=== PATIENT | male | born 1935 | race Caucasian/White ===

== ENCOUNTER → 2017-04-09 | Outpatient (CLI) | payer MEDICARE ==
--- NOTE | 2017-04-09 15:48 | ECHOF ---
Referral Reason:I10 HTN MEASUREMENTS -------- HEIGHT: 172.7 cm WEIGHT: 81.6 kg BP: RVIDd: 3.4 cm (< 3.3) IVSd: 1.4 cm (0.6 - 1.1) LVIDd: 3.5 cm (3.9 - 5.3) LVPWd: 1.4 cm (0.6 - 1.1) IVSs: 1.7 cm LVIDs: 2.6 cm LVPWs: 1.8 cm LAESV Index (A-L): 35.08 ml/m Ao Diam: 4.0 cm (2.0 - 3.7) AV Cusp: 1.6 cm (1.5 - 2.6) MV EXCURSION: 17.354 mm (> 18.000) MV EF SLOPE: 108 mm/s (70 - 150) EPSS: 0.7 cm MV E Bhupendra: 0.67 m/s MV DecT: 323 ms MV A Bhupendra: 1.03 m/s MV E/A Ratio: 0.65 RAP: 5.00 mmHg RVSP: 30.04 mmHg FINDINGS -------- Resting bradycardia (HR<60bpm). This was a technically good study. The left ventricular size is normal. There is mild concentric left ventricular hypertrophy. Overall left ventricular systolic function is normal with, an EF between 60 - 65 %. The right ventricle is normal in size and function. LA is moderately dilated 34-39 ml/m2 RA appears enlarged. Aortic valve is trileaflet and is mildly thickened. There is no evidence of aortic regurgitation. There is no evidence of aortic stenosis. The mitral valve leaflets are mildly thickened. There is trace to mild mitral regurgitation. Mild tricuspid regurgitation present. Right ventricular systolic pressure is normal at < 35 mmHg. There is no evidence of pulmonary hypertension. Trace/mild (physiologic) pulmonic regurgitation. The aortic root size is normal. Normal inferior vena cava with normal inspiratory collapse consistent with estimated right atrial pressure of 5 mmHg. The pericardium is normal. There is no pericardial effusion. CONCLUSIONS -------- 1. Resting bradycardia (HR<60bpm). 2. There is trace to mild mitral regurgitation. 3. Mild tricuspid regurgitation present. 4. Right ventricular systolic pressure is normal at < 35 mmHg. 5. There is no evidence of pulmonary hypertension. 6. Trace/mild (physiologic) pulmonic regurgitation. 7. The aortic root size is normal. 8. There is no pericardial effusion. 9. This was a technically good study. 10. The left ventricular size is normal. 11. There is mild concentric left ventricular hypertrophy. 12. Overall left ventricular systolic function is normal with, an EF between 60 - 65 %. 13. LA is moderately dilated 34-39 ml/m2 14. RA appears enlarged. 15. Aortic valve is trileaflet and is mildly thickened. 16. The mitral valve leaflets are mildly thickened. COLD TYPE COMPOSING MACHINE OPERATOR: Denver Torres RDCS
== END | disposition home or self-care (01) ==
LOC: RADECHMAIN 12:50
PROVIDERS: ATTEND Family Medicine
DX: I08.1 Rheumatic disorders of both mitral and tricuspid valves (principal); I10 Essential (primary) hypertension
CPT/HCPCS: 93306

== ENCOUNTER 2022-10-21 14:43 | Emergency (ER) | payer MEDICARE ==
[2022-10-21] MEDS ORDERED: HYDROmorphone 1 MG/ML 1 ML SYRINGE IVP STA ×2 (14:57→15:57)
[2022-10-21 15:12] VITALS: RESP 20
[2022-10-21 15:12] LABS: Basophils % (A) 0 %; Eosinophils # (A) 0.1 k/uL (0-0.7); Eosinophils % (A) 1 %; HCT 29.8 % (39.0-53.0); HGB 9.8 gm/dL (13.0-17.5); Lymphocytes # (A) 0.6 k/uL (1.0-4.8); Lymphocytes % (A) 5 %; MCH 29.8 pg (25.0-35.0); MCHC 32.9 g/dL (31.0-37.0); MCV 90.6 fL (80.0-100.0); Mean Platelet Volume 8.4; Monocytes # (A) 0.5 k/uL (0-1.0); Monocytes % (A) 4 %; Neutrophils # (A) 11.4 k/uL (1.3-7.7); Neutrophils % (A) 89 %; Platelet Count 215 k/uL (150-450); RBC 3.29 m/uL (4.30-5.90); RDW 14.2 % (11.5-15.5); WBC 12.8 k/uL (3.8-10.6)
[2022-10-21 15:16] VITALS: TEMP 97.1
[2022-10-21] MEDS ORDERED: HYDROmorphone 0.5 MG/0.5 ML SYRINGE IVP STA (15:17)
[2022-10-21 15:28] LABS: Albumin 3.5 g/dL (3.5-5.0); Calcium 8.8 mg/dL (8.4-10.2); Potassium 4.8 mmol/L (3.5-5.1); Total Bilirubin 0.8 mg/dL (0.2-1.3); Total Protein 6.1 g/dL (6.3-8.2)
--- NOTE | 2022-10-21 15:35 | CT ---
EXAMINATION TYPE: CT angio thor/abd pel aorta CT DLP: 2012.20 mGycm, Automated exposure control for dose reduction was used. DATE OF EXAM: 10/21/2022 3:17 PM COMPARISON: None. CLINICAL INDICATION:Male, 87 years old with history of Abdominal pain pulsatile mass; PHH, pt states "possible blockage" unsure where. hx of left leg stent. TECHNIQUE: Dissection protocol: Multiple axial CT images of the chest, abdomen, and pelvis were obtai buck prior and to the administration of IV contrast. 3-D reformats and maximum intensity projection fo rmat were performed on a separate workstation. Contrast used:100 mL of Isovue 370 without and with IV Contrast, Oral contrast used: without Oral Contrast FINDINGS: ARTERIAL VASCULATURE: No evidence of intramural hematoma involving the thoracic aorta. There is mild sclerotic calcification of the thoracic aorta and its branches. No dissection involving the thoracic aorta. 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 The great vessels are patent. Bovine arch configuration. Large infrarenal fusiform/saccular abdominal aortic aneurysm with intramural hematoma. Aneurysm measu res approximately 9.3 x 9.5 cm in AP by TV dimensions. There is mural thrombus with leaking along the anterior aspect containing contrast (series 501, image 193). Large amount of blood products demonstr ated within the retroperitoneum. The single renal arteries appear widely patent. The celiac access and SMA are widely patent. The LOS is not visualized. The bilateral common iliac arteries are patent with some atherosclerotic calcifica tion identified. The internal and external iliac arteries are patent. Lungs/pleura: No pleural effusion, pneumothorax, or focal consolidation. Mild COPD changes. Heart: Mildly enlarged. Post CABG changes. Coronary arterial calcifications and/or stents. Mediastinum: No gross evidence of adenopathy. Lower Neck: No significant findings. Abdomen: Liver: Few calcified granulomas.. Gallbladder and Bile ducts: Unremarkable. Pancreas: Unremarkable. Spleen: Scattered calcified granulomas.. Adrenal glands: Unremarkable. Kidneys and Ureters: No hydronephrosis or renal calculi. The kidneys enhance symmetrically. Stomach and Bowel: Large hiatal hernia containing at least two thirds of the stomach. Trace fluid wit hin the hiatal hernia. Distal colonic diverticulosis without evidence for acute diverticulitis. No e vidence of bowel obstruction. Peritoneum: No evidence of pneumoperitoneum, or adenopathy. Trace perihepatic simple appearing ascit es. Retroperitoneum: Large amount of blood products from leaking abdominal aortic aneurysm within the ret roperitoneum. Bladder: Unremarkable. Reproductive: Mildly prominent prostate gland with coarse calcifications.. Abdominal wall/soft tissues: Right inguinal hernia containing some fluid. Musculoskeletal: The osseous structures appear intact. Mild degenerative changes of visualized spine. Grade 1 anterolisthesis of L4 on L5 without evidence of pars defects. Median sternotomy wires. IMPRESSION: 1. Acute leaking large infrarenal abdominal aortic aneurysm measuring up to 9.6 cm with intramural he matoma. Large amount of blood products within the retroperitoneum. Vascular surgery consultation is r ecommended. 2. 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 3. Large hiatal hernia containing at least two thirds of the stomach. Findings called to and discussed with Dr. Gerardo Pennington at 3:18 PM on 10/21/2022.
--- NOTE | 2022-10-21 15:53 | ED ---
Back Pain HPI - General Chief Complaint: Back Pain/Injury Stated Complaint: Back Pain Time Seen by Provider: 10/21/22 14:43 Source: patient, family, EMS, RN notes reviewed, old records reviewed Mode of arrival: EMS Limitations: no limitations - History of Present Illness Initial Comments: 87-year-old male with a history of Y complex tachycardia with ablation, coronary artery bypass about 10 years ago thyroid disease COPD type 2 diabetes who states he had the onset around 9 AM this morning of back pain that was moderate to severe he is not recall any incident that may have injured his back. He states it different times it was sharp achy and dull. EMS was called he was found to be ready Cardec and writhing around in the back of his vehicle. Is brought here by EMS personnel. He did maintain his blood pressure denied any chest pain fevers chills sweats cough or phlegm production. No other MD Complaint: back pain - Related Data Home Medications Medication Instructions Recorded Confirmed Aspirin 81 mg PO BID 11/02/13 12/19/13 Allergies Allergy/AdvReac Type Severity Reaction Status Date / Time Penicillins Allergy Rash/Hives Verified 10/21/22 17:09 Review of Systems ROS Statement: Those systems with pertinent positive or pertinent negative responses have been documented in the HPI. ROS Other: All systems not noted in ROS Statement are negative. Past Medical History Past Medical History: Coronary Artery Disease (CAD), Chest Pain / Angina, COPD, GI Bleed, Hyperlipidemia, Pneumonia, Prostate Disorder Additional Past Medical History / Comment(s): CATARACTS, MACULAR DEGEN, TINNITIS, BRONCHITIS, SINUS PROB, CONSTIPATION, HEMORRHOIDS, HERNIA, POLYPS, FREQUENT URINATION, CHEST WOUND-WOUND CENTER, TORN ROTATOR CUFF, FX LEFT ANKLE, ANEMIA History of Any Multi-Drug Resistant Organisms: None Reported Past Surgical History: Coronary Bypass/CABG, Hernia Repair Additional Past Surgical History / Comment(s): HEMORRHOIDECTOMY, RIGHT THUMB SX X2, COLONOSCOPY Past Anesthesia/Blood Transfusion Reactions: No Reported Reaction Past Psychological History: No Psychological Hx Reported Smoking Status: Former smoker Past Alcohol Use History: None Reported Past Drug Use History: None Reported - Past Family History Father Family Medical History: Prostate Disorder Additional Family Medical History / Comment(s): PROSTATE CA General Exam - General Exam Comments Initial Comments: Is a well-developed thin appearing male who is awake alert oriented 4 he has complained of pain to his back no chest pain he initially does not state he has any abdominal pain. He later did state that he has some abdominal discomfort. Limitations: no limitations General appearance: alert, anxious, in distress Head exam: Present: atraumatic, normocephalic, normal inspection Eye exam: Present: normal appearance, PERRL, EOMI. Absent: scleral icterus, conjunctival injection, periorbital swelling ENT exam: Present: normal exam, mucous membranes moist Neck exam: Present: normal inspection, full ROM, other (No sedative or bruits). Absent: tenderness, meningismus, lymphadenopathy Respiratory exam: Present: normal lung sounds bilaterally. Absent: respiratory distress, wheezes, rales, rhonchi, stridor Cardiovascular Exam: Present: normal rhythm, bradycardia, normal heart sounds. Absent: systolic murmur, diastolic murmur, rubs, gallop, clicks GI/Abdominal exam: Present: soft, normal bowel sounds, pulsatile mass (Exam consistent with a pulsatile abdominal aorta with minimal discomfort on initial palpation distal pulses appear to be equal). Absent: distended, tenderness, guarding, rebound, rigid Rectal exam: Present: deferred Extremities exam: Present: normal inspection, full ROM, normal capillary refill. Absent: tenderness, pedal edema, joint swelling, calf tenderness Back exam: Present: normal inspection Neurological exam: Present: alert, oriented X3, CN II-XII intact Psychiatric exam: Present: normal affect, normal mood Skin exam: Present: warm, dry, intact, normal color. Absent: rash Course Vital Signs 10/21/22 10/21/22 10/21/22 14:45 15:10 16:00 Temperature 97.1 F L Pulse Rate 46 L 46 L 50 L Respiratory 16 20 20 Rate Blood Pressure 173/134 128/98 162/89 - Reevaluation(s) Reevaluation #1: 10/21/22 15:51 Repeat blood pressure has improved to 128/98 Reevaluation #2: 10/21/22 15:52 I did discuss the initial findings of CAT scan with radiology. I also did consult Dr. Lemus covering vascular surgery. Dr. Pearce did come the emergency department to see the patient. I also did have multiple conversations with the patient's family as well as the patient. Reevaluation #3: 10/21/22 15:53 Old charting from 2013 was evaluated by me including admissions Medical Decision Making - Medical Decision Making I did have multiple conversations with the patient's son and the patient and also with Dr. Pearce who did come see the patient emergency department the family and patient decided not to pursue surgery at this time. Patient will be admitted to hospice.Was pt. sent in by a medical professional or institution (, [facility], [facility], urgent care, hospital, or fpc...) When possible be specific @ -[No] Did you speak to anyone other than the patient for history (EMS, parent, family, police, friend...)? What history was obtained from this source @ -[Paramedics upon arrival] Did you review nursing and triage notes (agree or disagree)? Why? @ -[I reviewed and agree with nursing and triage notes] Were old charts reviewed (outside hosp., previous admission, EMS record, old EKG, old radiological studies, urgent care reports/EKG's, fpc records)? Report findings @ -[2013 old charts were reviewed] Differential Diagnosis (chest pain, altered mental status, abdominal pain women, abdominal pain men, vaginal bleeding, weakness, fever, dyspnea, syncope, headache, dizziness, GI bleed, back pain, seizure, CVA, palpatations, mental health, musculoskeletal)? @ -[Back pain, abdominal pain, aortic pathology] EKG interpreted by me (3pts min.). @ -[As above] X-rays interpreted by me (1pt min.). @ -[None done] CT interpreted by me (1pt min.). @ -[As above] U/S interpreted by me (1pt. min.). @ -[None done] What testing was considered but not performed or refused? (CT, X-rays, U/S, labs)? Why? @ -[None] What meds were considered but not given or refused? Why? @ -[None] Did you discuss the management of the patient with other professionals (professionals i.e. [facility] Fan, W[employer]HOU[employer] HAND[employer]ER, lab, RT, psych nurse, long term care social worker, supervisor covering and lining, teacher, marine safety officer, dependency case manager)? Give summary @ -[Dr. Belle, Dr. Pearce, Radha Holloway for Dr. law as the] Was smoking cessation discussed for >3mins.? @ -[No] Was critical care preformed (if so, how long)? @ -[49 minutes] Were there social determinants of health that impacted care today? How? (Homelessness, low income, unemployed, alcoholism, drug addiction, transportat ion, low edu. Level, literacy, decrease access to med. care, snf, rehab)? @ -[No] Was there de-escalation of care discussed even if they declined (Discuss DNR or withdrawal of care, Hospice)? DNR status @ -[No] What co-morbidities impacted this encounter? (DM, HTN, Smoking, COPD, CAD, Cancer, CVA, ARF, Chemo, Hep., AIDS, mental health diagnosis, sleep apnea, morbid obesity)? @ -[CAD, hypertension, type 2 diabetes] Was patient admitted / discharged? Hospital course, mention meds given and route, prescriptions, significant lab abnormalities, going to OR and other pertinent info. @ -[hospital course] patient was admitted to hospice after evaluation by vascular surgery and consideration by family and the patient. Patient has declined surgery family is in agreement. Undiagnosed new problem with uncertain prognosis? @ -[Leaking abdominal aortic aneurysm] Drug Therapy requiring intensive monitoring for toxicity (Heparin, Nitro, Insulin, Cardizem)? @ -[No] Were any procedures done? @ -[No] Diagnosis/symptom? @ -[Leaking abdominal aortic aneurysm, bradycardia, anemia] Acute, or Chronic, or Acute on Chronic? @ -[Acute] Uncomplicated (without systemic symptoms) or Complicated (systemic symptoms)? @ -[Complicated] Side effects of treatment? @ -[No] Exacerbation, Progression, or Severe Exacerbation? @ -[No] Poses a threat to life or bodily function? How? (Chest pain, USA, GA, pneumonia, PE, COPD, DKA, ARF, appy, cholecystitis, CVA, Diverticulitis, Homicidal, Suicidal, threat to staff... and all critical care pts) @ -[Yes leaking abdominal aortic aneurysm with anemia] - Lab Data Result diagrams: 10/21/22 14:51 10/21/22 14:51 Lab Results 10/21/22 10/21/22 10/21/22 Range/Units 14:51 14:51 14:51 WBC 12.8 H (3.8-10.6) k/uL RBC 3.29 L (4.30-5.90) m/uL Hgb 9.8 L (13.0-17.5) gm/dL Hct 29.8 L (39.0-53.0) % MCV 90.6 (80.0-100.0) fL MCH 29.8 (25.0-35.0) pg MCHC 32.9 (31.0-37.0) g/dL RDW 14.2 (11.5-15.5) % Plt Count 215 (150-450) k/uL MPV 8.4 Neutrophils % 89 % Lymphocytes % 5 % Monocytes % 4 % Eosinophils % 1 % Basophils % 0 % Neutrophils # 11.4 H (1.3-7.7) k/uL Lymphocytes # 0.6 L (1.0-4.8) k/uL Monocytes # 0.5 (0-1.0) k/uL Eosinophils # 0.1 (0-0.7) k/uL Basophils # 0.0 (0-0.2) k/uL D-Dimer 15.90 H (<0.60) mg/L FEU Sodium 136 L (137-145) mmol/L Potassium 4.8 (3.5-5.1) mmol/L Chloride 106 (98-107) mmol/L Carbon Dioxide 19 L (22-30) mmol/L Anion Gap 11 mmol/L BUN 32 H (9-20) mg/dL Creatinine 1.23 (0.66-1.25) mg/dL Est GFR (CKD-EPI)AfAm 60 (>60 ml/min/1.73 sqM) Est GFR (CKD-EPI)NonAf 52 (>60 ml/min/1.73 sqM) Glucose 171 H (74-99) mg/dL Calcium 8.8 (8.4-10.2) mg/dL Magnesium 2.0 (1.6-2.3) mg/dL Total Bilirubin 0.8 (0.2-1.3) mg/dL AST 23 (17-59) U/L ALT 13 (4-49) U/L Alkaline Phosphatase 86 (38-126) U/L Creatine Kinase 83 (55-170) U/L Troponin I (0.000-0.034) ng/mL Total Protein 6.1 L (6.3-8.2) g/dL Albumin 3.5 (3.5-5.0) g/dL Lipase 85 (23-300) U/L 10/21/22 Range/Units 14:51 WBC (3.8-10.6) k/uL RBC (4.30-5.90) m/uL Hgb (13.0-17.5) gm/dL Hct (39.0-53.0) % MCV (80.0-100.0) fL MCH (25.0-35.0) pg MCHC (31.0-37.0) g/dL RDW (11.5-15.5) % Plt Count (150-450) k/uL MPV Neutrophils % % Lymphocytes % % Monocytes % % Eosinophils % % Basophils % % Neutrophils # (1.3-7.7) k/uL Lymphocytes # (1.0-4.8) k/uL Monocytes # (0-1.0) k/uL Eosinophils # (0-0.7) k/uL Basophils # (0-0.2) k/uL D-Dimer (<0.60) mg/L FEU Sodium (137-145) mmol/L Potassium (3.5-5.1) mmol/L Chloride (98-107) mmol/L Carbon Dioxide (22-30) mmol/L Anion Gap mmol/L BUN (9-20) mg/dL Creatinine (0.66-1.25) mg/dL Est GFR (CKD-EPI)AfAm (>60 ml/min/1.73 sqM) Est GFR (CKD-EPI)NonAf (>60 ml/min/1.73 sqM) Glucose (74-99) mg/dL Calcium (8.4-10.2) mg/dL Magnesium (1.6-2.3) mg/dL Total Bilirubin (0.2-1.3) mg/dL AST (17-59) U/L ALT (4-49) U/L Alkaline Phosphatase (38-126) U/L Creatine Kinase (55-170) U/L Troponin I <0.012 (0.000-0.034) ng/mL Total Protein (6.3-8.2) g/dL Albumin (3.5-5.0) g/dL Lipase (23-300) U/L - EKG Data -: EKG Interpreted by Me EKG Comments: EKG interpreted by me showed a sinus bradycardia with first-degree AV block rate was 42 NM interval 223 QRS duration 155 QT since QTC 514/458 mg block pattern with anterior fascicular block pattern this is compared with EKG dated 11/01/13 also with the EKG submitted by EMS today. - Radiology Data Interpreted by me: Interpreted the CAT scan evidence of abdominal aortic aneurysm also evidence of leak anteriorly. Aneurysm appears to be approximately 9 cm. I did interpret the imaging and stated. I did also consult with radiology. I also consulted with Critical Care Time Critical Care Time: Yes Total Critical Care Time: 49 Disposition Clinical Impression: Abdominal aortic aneurysm (AAA) greater than 5.5 cm in diameter in male, Ruptured abdominal aortic aneurysm, Anemia, Back pain, Bradycardia, Elevated d- dimer Disposition: ADMITTED IP TO THIS [facility] Condition: Critical Referrals: None,Stated [REFERRING] - 1-2 days Decision Date: 10/21/22 Decision Time: 16:30
[2022-10-21 16:05] VITALS: BP 162/89; PULSE 50
--- NOTE | 2022-10-21 16:12 | P.GSCN ---
History of Present Illness Consult date: 10/21/22 Reason for Consult: Ruptured AAA History of present illness: Patient is 87-year-old male who presented to the emergency department with complaints of abdominal pain radiating to his back. EMS brought him in with complaints of back pain. He underwent a CT angiogram thoracic aorta that showed a ruptured aortic aneurysm. Vascular surgery was consulted for the above. He has a past medical history including coronary artery disease status post CABG, thyroid disease, former smoker. Denies any anticoagulation. Denies any chest pain or shortness of breath at this time. Most of his pain is in the mid abdomen. Review of Systems A 14 point review systems was completed all pertinent positives and negatives as stated in the HPI. Past Medical History Past Medical History: Coronary Artery Disease (CAD), Chest Pain / Angina, COPD, GI Bleed, Hyperlipidemia, Pneumonia, Prostate Disorder Additional Past Medical History / Comment(s): CATARACTS, MACULAR DEGEN, TINNITIS, BRONCHITIS, SINUS PROB, CONSTIPATION, HEMORRHOIDS, HERNIA, POLYPS, FREQUENT URINATION, CHEST WOUND-WOUND CENTER, TORN ROTATOR CUFF, FX LEFT ANKLE, ANEMIA History of Any Multi-Drug Resistant Organisms: None Reported Past Surgical History: Coronary Bypass/CABG, Hernia Repair Additional Past Surgical History / Comment(s): HEMORRHOIDECTOMY, RIGHT THUMB SX X2, COLONOSCOPY Past Anesthesia/Blood Transfusion Reactions: No Reported Reaction Past Psychological History: No Psychological Hx Reported Smoking Status: Former smoker Past Alcohol Use History: None Reported Past Drug Use History: None Reported - Past Family History Father Family Medical History: Prostate Disorder Additional Family Medical History / Comment(s): PROSTATE CA Medications and Allergies Home Medications Medication Instructions Recorded Confirmed Type Aspirin 81 mg PO DAILY 11/02/13 10/21/22 History Allergies Allergy/AdvReac Type Severity Reaction Status Date / Time Penicillins Allergy Rash/Hives Verified 10/21/22 17:09 Surgical - Exam Vital Signs Pulse Resp BP 46 L 16 173/134 10/21/22 14:45 10/21/22 14:45 10/21/22 14:45 General appearance: The patient is alert, oriented, appears in no acute distress. HET: Head is normocephalic and atraumatic. Pupils are equal and reactive. Neck: Supple. Heart: Regular. Lungs: Equal expansion, normal respiratory effort. Abdomen: Soft, abdominal tenderness, nondistended. Mottled abdomen. Extremities: Normal skin color and turgor. No cyanosis, rash, ulceration, clubbing, or edema. Palpable Bilateral femoral arteries. Neurological: No focal deficits. Alert and oriented Results - Labs 10/21/22 14:51 10/21/22 14:51 Abnormal Lab Results - Last 24 Hours (Table) 10/21/22 10/21/22 Range/Units 14:51 14:51 WBC 12.8 H (3.8-10.6) k/uL RBC 3.29 L (4.30-5.90) m/uL Hgb 9.8 L (13.0-17.5) gm/dL Hct 29.8 L (39.0-53.0) % Neutrophils # 11.4 H (1.3-7.7) k/uL Lymphocytes # 0.6 L (1.0-4.8) k/uL Sodium 136 L (137-145) mmol/L Carbon Dioxide 19 L (22-30) mmol/L BUN 32 H (9-20) mg/dL Glucose 171 H (74-99) mg/dL Total Protein 6.1 L (6.3-8.2) g/dL Diabetes panel 10/21/22 Range/Units 14:51 Sodium 136 L (137-145) mmol/L Potassium 4.8 (3.5-5.1) mmol/L Chloride 106 (98-107) mmol/L Carbon Dioxide 19 L (22-30) mmol/L BUN 32 H (9-20) mg/dL Creatinine 1.23 (0.66-1.25) mg/dL Glucose 171 H (74-99) mg/dL Calcium 8.8 (8.4-10.2) mg/dL AST 23 (17-59) U/L ALT 13 (4-49) U/L Alkaline Phosphatase 86 (38-126) U/L Total Protein 6.1 L (6.3-8.2) g/dL Albumin 3.5 (3.5-5.0) g/dL Calcium panel 10/21/22 Range/Units 14:51 Calcium 8.8 (8.4-10.2) mg/dL Albumin 3.5 (3.5-5.0) g/dL Pituitary panel 10/21/22 Range/Units 14:51 Sodium 136 L (137-145) mmol/L Potassium 4.8 (3.5-5.1) mmol/L Chloride 106 (98-107) mmol/L Carbon Dioxide 19 L (22-30) mmol/L BUN 32 H (9-20) mg/dL Creatinine 1.23 (0.66-1.25) mg/dL Glucose 171 H (74-99) mg/dL Calcium 8.8 (8.4-10.2) mg/dL Adrenal panel 10/21/22 Range/Units 14:51 Sodium 136 L (137-145) mmol/L Potassium 4.8 (3.5-5.1) mmol/L Chloride 106 (98-107) mmol/L Carbon Dioxide 19 L (22-30) mmol/L BUN 32 H (9-20) mg/dL Creatinine 1.23 (0.66-1.25) mg/dL Glucose 171 H (74-99) mg/dL Calcium 8.8 (8.4-10.2) mg/dL Total Bilirubin 0.8 (0.2-1.3) mg/dL AST 23 (17-59) U/L ALT 13 (4-49) U/L Alkaline Phosphatase 86 (38-126) U/L Total Protein 6.1 L (6.3-8.2) g/dL Albumin 3.5 (3.5-5.0) g/dL Assessment and Plan Assessment: 1. Ruptured AAA 8.9 cm 2. History of coronary artery disease status post CABG 3. Thyroid disease 4. Former smoker 5. Memory impairment Plan: CT angiogram imaging personally reviewed by Dr. Pearce. Surgical options were discussed with patient, son, and daughter in law. Patient has memory impairment, and son has paperwork inplace and is next of kin, however they have collectively not to proceed with surgery, and make patient NO CODE, comfort care and hospice will be consulted. Case management has been contacted regarding the above to contact inpatient hospice. Thank you for this consultation, we will sign off at this time. The impression and plan of care has been dictated as directed. I performed a history and examination of this patient, discussed the same with the dictator. I agree with the dictator's note ,documented as a scribe. Any additional findings or plans will be noted. Patient seen and examined at the bedside. All images were reviewed. Long d iscussion had with the family at the bedside, would be possibly amenable for endovascular approach however there is significant angulation at the proximal neck and closer proximity to the renal vessels. Patient would not survive open surgical intervention due to high morbidity. May have issues with need for dialysis, extended wound care, prolonged ventilator support,. Given overall wishes and daily picture of patient's overall health, they have elected to not go forward with surgical intervention. They believe this is not something he would have wanted. They elected for no code with hospice admission.
== END 2022-10-21 17:38 | disposition other institution (70) ==
LOC: EC 14:43
DX: I71.30 Abdominal aortic aneurysm, ruptured, unspecified (principal); D64.9 Anemia, unspecified; R00.1 Bradycardia, unspecified; R79.89 Other specified abnormal findings of blood chemistry; I25.10 Atherosclerotic heart disease of native coronary artery without angina pectoris; J44.9 Chronic obstructive pulmonary disease, unspecified; Z87.891 Personal history of nicotine dependence; Z88.0 Allergy status to penicillin; Z79.82 Long term (current) use of aspirin
CPT/HCPCS: 36415; 93005; 86900; 86901; 85379; 80053; 82550; 83690; 83735; 84484; 85025; 86850; 71275; 74174; 99291; 96374; 96376; J1170 ×2; Q9967

== ENCOUNTER 2022-10-21 16:32 | Inpatient (IN) | payer MEDICAID, MEDICARE ==
[2022-10-21] MEDS ORDERED: ONDANSETRON 4 MG/2 ML VIAL IVP PRN (16:52)
[2022-10-21] MEDS ORDERED: ACETAMINOPHEN SUPPOSITORY 650 MG SUPP RECTAL PRN (16:52)
[2022-10-21] MEDS ORDERED: MORPHINE SULFATE 2 MG/ML SYRINGE IV PRN (16:52)
[2022-10-21] MEDS ORDERED: MORPHINE SULFATE (100 MG/2 ML) 100 MG in SODIUM CHLORIDE 0.9% 100 ML IV SCH (17:30)
[2022-10-21] MEDS ORDERED: SCOPOLAMINE 1 MG/72 HR PATCH TRANSDERM SCH (17:30)
[2022-10-21 17:35] VITALS: BP 102/67; PULSE 59; RESP 16
[2022-10-21] MEDS: LORazepam 2 MG/ML INJ IV PRN (19:07)
[2022-10-22] MEDS: LORazepam 2 MG/ML INJ IV PRN ×2 (00:26→04:27)
--- NOTE | 2022-10-22 11:29 | P.HPIM ---
History of Present Illness H&P Date: 10/22/22 This is a 87-year-old male who presented to the emergency department with family via EMS initially with reporting some back pain that was radiating and excruciating and sharp in nature and unable to tolerate sucking to the ER for further evaluation. Patient follows with Dr. Leyva in the outpatient setting with a past medical history of coronary artery disease, chest pain, angina, COPD, GI bleeds, hyperlipidemia, prostate disorder, cataracts. Patient denies drinking or illicit drug use and reports to being a former smoker. 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 Vascular surgery was consulted and evaluated the patient down in the ER and multiple family members present and has decided no surgical intervention is wanted and they want the patient to be comfortable. Patient was admitted with [facility] on consultation per family and patient request. Review Of Systems: Constitutional: No fever, no chills, no night sweats. No weight change. No weakness, fatigue or lethargy. No daytime sleepiness. EENT: No headache. No blurred vision or double vision, no loss of vision. No loss of Hearing, no ringing in the ears, no dizziness. No nasal drainage or congestion. No epistaxis. No sore throat. Lungs: No shortness of breath, cough, no sputum production. No wheezing. Cardiovascular: No chest pain, no lower extremity edema. No palpitations. No paroxysmal nocturnal dyspnea. No orthopnea. No lightheadedness or dizziness. No syncopal episodes. Abdominal: Reports dull diffuse abdominal pain. Reports nausea, no vomiting. No diarrhea. No constipation. No bloody or tarry stools.. Reports loss of appetite. Genitourinary: No dysuria, increased frequency, urgency. No urinary retention. Musculoskeletal: No myalgias. No muscle weakness, no gait dysfunction, no frequent falls. Reports intense sudden onset back pain. No neck pain. Integumentary: No wounds, no lesions. No rash or pruritus. No unusual bruising. No change in hair or nails. Neurologic: No aphasia. No facial droop. No change in mentation. No head injury. No headache. No paralysis. No paresthesia. Psychiatric: No depression. No anxiety. No mood swings. Endocrine: No abnormal blood sugars. No weight change. No excessive sweating or thirst. No cold intolerance. PHYSICAL EXAMINATION: GENERAL: The patient is alert and oriented x2, thin built, elderly appearing HEENT: Pupils are round and equally reacting to light. EOMI. no scleral icterus. No conjunctival pallor. Normocephalic, atraumatic. No pharyngeal erythema. No thyromegaly. CARDIOVASCULAR: S1 and S2 muffled PULMONARY: diminished breath sounds bilaterally with no wheezing or rhonchi noted. ABDOMEN: soft. Nontender on exam. non-distended, normoactive bowel sounds. No palpable organomegaly. MUSCULOSKELETAL: No joint swelling or deformity. EXTREMITIES: No cyanosis, clubbing, or pedal edema. NEUROLOGICAL: Gross neurological examination did not reveal any focal deficits. Diffuse weakness SKIN: No rashes. Assessment: Back pain most likely secondary to ruptured abdominal aortic aneurysm, noted to be 9.[address] that is leaking with intramural hematoma noted History of coronary artery disease with CABG COPD, not in exacerbation [place] hyperlipidemia Former smoker Memory impairment No code Plan: Recommend to continue with current medications and management per [facility] hospice services. Patient presented to the emergency department with severe back pain with some diffuse abdominal pain and had an thoracic aortic CTA done showing a leaking ruptured aneurysm and vascular surgery evaluated the patient and patient family has decided they did not want any surgical intervention and would like to make the patient comfortable [facility] hospice was consulted in the ER and patient was admitted and met criteria for GIP services Patient is currently with [facility] on comfort measures only with multiple family members at the bedside. Patient does follow with Dr. Leyva in the outpatient setting and a copy of this dictation will be sent Overall poor prognosis The impression and plan of care has been dictated by Radha Vick nurse practitioner as directed. Dr. Chayito MD I have performed a history and examination and MDM of this patient, discussed the same with the dictator, and agree with the dictator's assessment and plan as written ,documented as a scribe. Based on total visit time, I have performed more than 50% of the visit. Any additional findings or plans will be noted. Past Medical History Past Medical History: Coronary Artery Disease (CAD), Chest Pain / Angina, COPD, GI Bleed, Hyperlipidemia, Pneumonia, Prostate Disorder Additional Past Medical History / Comment(s): CATARACTS, MACULAR DEGEN, TINNITIS, BRONCHITIS, SINUS PROB, CONSTIPATION, HEMORRHOIDS, HERNIA, POLYPS, FREQUENT URINATION, CHEST WOUND-WOUND CENTER, TORN ROTATOR CUFF, FX LEFT ANKLE, ANEMIA History of Any Multi-Drug Resistant Organisms: None Reported Past Surgical History: Coronary Bypass/CABG, Hernia Repair Additional Past Surgical History / Comment(s): HEMORRHOIDECTOMY, RIGHT THUMB SX X2, COLONOSCOPY Past Anesthesia/Blood Transfusion Reactions: No Reported Reaction Past Psychological History: No Psychological Hx Reported Smoking Status: Former smoker Past Alcohol Use History: None Reported Past Drug Use History: None Reported - Past Family History Father Family Medical History: Prostate Disorder Additional Family Medical History / Comment(s): PROSTATE CA Medications and Allergies Home Medications Medication Instructions Recorded Confirmed Type Aspirin 81 mg PO DAILY 11/02/13 10/21/22 History Allergies Allergy/AdvReac Type Severity Reaction Status Date / Time Penicillins Allergy Rash/Hives Verified 10/21/22 17:09 Physical Exam Vitals: Vital Signs Pulse Resp BP Pulse Ox 10/21/22 19:45 16 10/21/22 17:31 59 L 16 102/67 96 10/21/22 16:50 56 L 20 130/86 96 Intake and Output 10/21/22 10/22/22 10/22/22 22:59 06:59 14:59 Intake Total 200.629 Output Total 0 Balance 0 200.629 Intake: Intake, IV Titration 0.629 Amount Morphine Sulfate (100 mg/ 0.629 2 ml) 100 mg In Sodium Chloride 0.9% 100 ml @ 1 MG/HR 1.02 mls/hr IV . Q24H [facility] Rx#:[id number] Oral 200 Output: Urine 0 Other: Voiding Method Urinal Urinal Diaper Diaper # Voids 0 1 Weight 63.5 kg Thrombosis Risk Factor Assmnt - Choose All That Apply Any of the Below Risk Factors Present?: Yes Each Factor Represents 1 point: Obesity (BMI >25) Other Risk Factors: Yes Each Risk Factor Represents 3 Points: Age 75 years or older Thrombosis Risk Factor Assessment Total Risk Factor Score: 4 Thrombosis Risk Factor Assessment Level: Moderate Risk Assessment and Plan Time with Patient: Less than 30
--- NOTE | 2022-10-22 13:47 | P.DS ---
Providers Date of admission: 10/21/22 16:45 Expected date of discharge: 10/22/22 Attending physician: Oscar Stratton Primary care physician: Gorge Leyva [facility] Course: Preliminary cause of Ruptured abdominal aortic aneurysm Final diagnosis Back pain most likely secondary to ruptured abdominal aortic aneurysm, noted to be 9.[address] that is leaking with intramural hematoma noted History of coronary artery disease with CABG COPD, not in exacerbation [place] hyperlipidemia Former smoker Memory impairment No code Discharge disposition Patient has . According to nursing documentation time of was 1203 on 10/22/2022. Family deciding on home in [facility] following Hospital course This is a 87-year-old male who presented to the emergency department with family via EMS initially with reporting some back pain that was radiating and excruciating and sharp in nature and unable to tolerate sucking to the ER for further evaluation. Patient follows with Dr. Leyva in the outpatient setting with a past medical history of coronary artery disease, chest pain, angina, COPD, GI bleeds, hyperlipidemia, prostate disorder, cataracts. Patient denies drinking or illicit drug use and reports to being a former smoker. 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 Vascular surgery was consulted and evaluated the patient down in the ER and multiple family members present and has decided no surgical intervention is wanted and they want the patient to be comfortable. Patient was admitted with [facility] on consultation per family and patient request. 10/22/2022 In follow-up nursing staff notified patient has and was on morphine drip with multiple family members present in [facility] following. Patient was continued on comfort measures only per family request. Again patient has on 10/22/2022 at 1203. Please refer to vascular surgery and ER notes for further documentation and HPI The impression and plan of care has been dictated by Radha Vick, Nurse Practitioner as directed. Dr. Chayito MD I have performed a history and examination and MDM of this patient, discussed the same with the dictator, and agree with the dictator's assessment and plan as written ,documented as a scribe. Based on total visit time, I have performed more than 50% of the visit. Patient Condition at Discharge: Poor Plan - Discharge Summary Discharge Rx Participant: No New Discharge Prescriptions: No Action Aspirin 81 mg PO DAILY Discharge Medication List Aspirin 81 mg PO DAILY 11/02/13 [History] Follow up Appointment(s)/Referral(s): Gorge Leyva DO [Primary Care Provider] - 1 Week
== END 2022-10-22 13:43 | disposition expired | DRG 951 ==
LOC: EC 16:32 → 5NMEDONC 16:45
PROVIDERS: ADMIT Internal Medicine; ATTEND Internal Medicine
DX: Z51.5 Encounter for palliative care (principal); I71.33 Infrarenal abdominal aortic aneurysm, ruptured; I25.10 Atherosclerotic heart disease of native coronary artery without angina pectoris; Z95.1 Presence of aortocoronary bypass graft; J44.9 Chronic obstructive pulmonary disease, unspecified; E78.5 Hyperlipidemia, unspecified; Z87.891 Personal history of nicotine dependence; Z66 Do not resuscitate; K44.9 Diaphragmatic hernia without obstruction or gangrene; Z79.82 Long term (current) use of aspirin
CPT/HCPCS: 99285